=== PATIENT | female | born 1970 | race Caucasian/White ===

== ENCOUNTER 2016-11-23 08:58 | Emergency (ER) | payer SELFPAY ==
[2016-11-23] MEDS ORDERED: KETOROLAC TROMETHAMINE 0.45% 4 DROP/0.4 ML DROPERETTE OU ONE ×2 (10:38→12:08)
[2016-11-23 11:41] VITALS: BP 113/68
--- NOTE | 2016-11-23 11:49 | ER Document Report ---
ED ENT - General Chief Complaint: Eye Pain Stated Complaint: EYE PAIN Mode of Arrival: Ambulatory Information source: Patient Notes: 46-year-old female presents to the emergency department complaining of bilateral eye redness, drainage, irritation, and burning type pain over the last 3 days. Patient reports had conjunctivitis due to leaving her contact lens into long approximately 3 weeks ago which she started with left over eye drops. States symptoms had resolved however 3 days ago began developing them again. Denies fever, vision changes, eye pain, or injury. Reports has had cold and congestion over the last week and also 3 days ago began developing bilateral sinus pain with associated greenish and white discharge. Reports associated chills with unmeasured temperature at home. Denies nausea or vomiting, chest pain or shortness of breath, difficulty breathing or swallowing. States has appointment with her software quality specialist this week but cannot wait until then. TRAVEL OUTSIDE OF THE [place] IN LAST 30 DAYS: No - HPI Pain Level: 3 Context: Recent Illness Similar symptoms previously: Yes Recently seen / treated by doctor: No - Related Data Allergies/Adverse Reactions: lidocaine [Lidocaine] Allergy (Severe, Verified 11/23/16 09:08) airway swells promethazine [Promethazine] Allergy (Mild, Verified 11/23/16 09:08) RASH midazolam Adverse Reaction (Severe, Verified 11/23/16 09:08) loud and funny behavior topiramate [From Topamax] Adverse Reaction (Verified 11/23/16 09:08) hallucinate rose Allergy (Uncoded 11/23/16 09:08) Past Medical History - General Information source: Patient - Social History Smoking Status: Never Smoker Frequency of alcohol use: Occasional Drug Abuse: None Lives with: Family Family History: Reviewed & Not Pertinent - Past Medical History Cardiac Medical History: Denies: Hx Coronary Artery Disease, Hx Heart Attack, Hx Hypertension Pulmonary Medical History: Denies: Hx Asthma, Hx Bronchitis, Hx COPD, Hx Pneumonia, Hx Tuberculosis Neurological Medical History: Denies: Hx Cerebrovascular Accident, Hx Seizures Endocrine Medical History: Reports: 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 Denies: Hx Hysterectomy - Immunizations Immunizations up to date: Yes Hx Diphtheria, Pertussis, Tetanus Vaccination: Yes Hx Pneumococcal Vaccination: 05/22/13 Review of Systems - Review of Systems Constitutional: See HPI EENT: See HPI Cardiovascular: No symptoms reported Respiratory: No symptoms reported Gastrointestinal: No symptoms reported Genitourinary: No symptoms reported Female Genitourinary: No symptoms reported Musculoskeletal: No symptoms reported Skin: No symptoms reported Hematologic/Lymphatic: No symptoms reported Neurological/Psychological: No symptoms reported -: Yes All other systems reviewed and negative Physical Exam - Vital signs Vitals: Temp Pulse Resp BP Pulse Ox 97.9 F 66 16 110/71 98 11/23/16 09:05 11/23/16 09:05 11/23/16 09:05 11/23/16 09:05 11/23/16 09:05 Interpretation: Normal - General General appearance: Appears well, Alert In distress: None - HEENT Head: Normocephalic, Atraumatic Eyes: Normal Conjunctiva: Injected - Bilateral. No: Purulent discharge Cornea: Normal Extraocular movements intact: Yes Eyelashes: Normal Pupils: PERRL Corrective lenses worn: No Lids everted for exam: bilateral: Normal Anterior chamber: Normal Fundascopic: Normal Nerve palsy: No Visual sanders normal: Yes Ears: Normal External canal: Normal Tympanic membrane: Normal Sinus: Maxillary, Redness, Tenderness. No: Normal, Abnormal, Frontal, Mastoid, Swelling, Other Nasal: Normal Mouth/Lips: Normal Mucous membranes: Normal, Moist Pharynx: Normal. No: Blood in hypopharynx, Erythema, Exudate, Peritonsillar abscess, Post nasal drainage, Retropharyngeal abscess, Tonsillar hypertrophy, Uvular edema, Potential airway comprom., Other Neck: Normal. No: Anterior cervical chain, Posterior cervical chain, Lymphadenopathy, Meningismus, Subcutaneous emphysema - Respiratory Respiratory status: No respiratory distress Chest status: Nontender Breath sounds: Normal Chest palpation: Normal - Cardiovascular Rhythm: Regular Heart sounds: Normal auscultation Murmur: No Pulses: Normal: Radial Normal capillary refill: Yes - Abdominal Inspection: Normal Distension: No distension Bowel sounds: Normal Tenderness: Nontender Organomegaly: No organomegaly - Back Back: Normal, Nontender - Extremities General upper extremity: Normal inspection, Normal color, Normal ROM General lower extremity: Normal inspection, Normal color, Normal ROM, Normal weight bearing - Neurological Neuro grossly intact: Yes Cognition: Normal Orientation: AAOx4 Lauren Coma Scale Eye Opening: Spontaneous [place] Coma Scale Verbal: Oriented [place] Coma Scale Motor: Obeys Commands Lauren Coma Scale Total: 15 Speech: Normal Motor strength normal: LUE, RUE, LLE, RLE Sensory: Normal - Psychological Associated symptoms: Normal affect, Normal mood - Skin Skin Temperature: Warm Skin Moisture: Dry Skin Color: Normal Skin Turgor: Elastic Course - Re-evaluation Re-evalutation: 11/23/16 12:15 Patient hemodynamically stable, in no distress, afebrile. Patient reports symptoms significantly improved after ophthalmic ketorolac drops. No suggestion of emergent infectious, ophthalmic, inflammatory, or vascular etiology at this time. Patient appears stable for discharge and agrees with home care, follow-up with PCP and ophthalmology, and ED return precautions. - Vital Signs Vital signs: Temp Pulse Resp BP Pulse Ox 98.3 F 69 18 113/68 99 11/23/16 11:40 11/23/16 11:40 11/23/16 11:40 11/23/16 11:40 11/23/16 11:40 Discharge - Discharge Clinical Impression: Conjunctivitis Qualifiers: Conjunctivitis type: unspecified Laterality: bilateral Qualified Code(s): H10.9 - Unspecified conjunctivitis Sinusitis Qualifiers: Sinusitis location: maxillary Chronicity: acute Recurrence: non-recurrent Qualified Code(s): J01.00 - Acute maxillary sinusitis, unspecified Condition: Stable Disposition: HOME, SELF-CARE Instructions: Sinusitis ([facility]), Conjunctivitis ([facility]), Ketorolac Tromethamine Eye Drops ([facility]), Eyedrop Use ([facility]) Additional Instructions: -Apply 1 drop of the provided anti-inflammatory eyedrops (Ketorolac) to the affected eye every 6-8 hours if needed for eye discomfort. Home self care: -Rest, hydration (6-10 glasses/day) -Steamy shower -Apply warm facial packs -Nasal saline irrigation lavage -Sleep with head elevated -Avoid cigarette smoke -Use of humidifier/vaporizer -Balanced nutrition Follow-up with your primary care provider and software quality specialist tomorrow as discussed. Return to the Emergency Department for any worsening symptoms or concerns. Prescriptions: Amox Tr/Potassium Clavulanate [Augmentin 875-125 Tablet] 1 tab PO BID 7 Days Besifloxacin HCl [Besivance 0.6% Oph Susp 5 ml] 1 drop OP TID #1 bottle Forms: Return to Work Referrals: HEATH STARK MD [Primary Care Provider] - Follow up tomorrow SHEKHAR WILLOUGHBY, OD [NO LOCAL MD] - Follow up tomorrow
== END 2016-11-23 12:36 | disposition home or self-care (01) ==
LOC: ER 08:58
DX: H10.9 Unspecified conjunctivitis (principal); J01.00 Acute maxillary sinusitis, unspecified; H57.10 Ocular pain, unspecified eye
CPT/HCPCS: 99283

== ENCOUNTER → 2016-12-15 | Outpatient (CLI) | payer SELFPAY ==
[2016-12-15 15:52] LABS: ABSOLUTE BASOPHILS # (AUTO) 0.1 10^3/uL (0.0-0.2); ABSOLUTE EOSINOPHILS # (AUTO) 0.4 10^3/uL (0.0-0.6); ABSOLUTE LYMPHOCYTES (AUTO) 2.5 10^3/uL (0.5-4.7); ABSOLUTE MONOCYTES (AUTO) 0.6 10^3/uL (0.1-1.4); ABSOLUTE NEUT (AUTO) 5.8 10^3/uL (1.7-8.2); BASOPHILS % (AUTO) 1.1 % (0-2); EOSINOPHILS % (AUTO) 3.9 % (0-6); HEMATOCRIT 40.8 % (36.0-47.0); HEMOGLOBIN 13.2 g/dL (12.0-15.5); HGB HCT DIFFERENCE -1.2; LYMPHOCYTES % (AUTO) 26.9 % (13-45); MEAN CORPUSCULAR HEMOGLOBIN 30.3 pg (27.0-33.4); MEAN CORPUSCULAR HGB CONC 32.5 g/dL (32.0-36.0); MEAN CORPUSCULAR VOLUME 94 fl (80-97); MONOCYTES % (AUTO) 6.4 % (3-13); RED BLOOD COUNT 4.36 10^6/uL (3.72-5.28); RED CELL DISTRIBUTION WIDTH 12.8 % (11.5-14.0); SEGMENTED NEUTROPHILS % (AUTO) 61.7 % (42-78); WHITE BLOOD COUNT 9.5 10^3/uL (4.0-10.5)
[2016-12-15 16:21] LABS: ALANINE AMINOTRANSFERASE 32 U/L (9-52); ALBUMIN 3.8 g/dL (3.5-5.0); ALKALINE PHOSPHATASE 114 U/L (38-126); ANION GAP 11 (5-19); ASPARTATE AMINO TRANSFERASE 20 U/L (14-36); BILIRUBIN,TOTAL 0.4 mg/dL (0.2-1.3); BLOOD UREA NITROGEN 15 mg/dL (7-20); CALCIUM 9.4 mg/dL (8.4-10.2); CARBON DIOXIDE 27 mmol/L (22-30); CHLORIDE 104 mmol/L (98-107); CREATININE RESULT 0.67 mg/dL (0.52-1.25); GLUCOSE 221 mg/dL (75-110); POTASSIUM 4.4 mmol/L (3.6-5.0); SODIUM 141.8 mmol/L (137-145); TOTAL PROTEIN 6.6 g/dL (6.3-8.2)
== END ==
LOC: OD 14:33
PROVIDERS: ATTEND Family Medicine
DX: D50.9 Iron deficiency anemia, unspecified (principal); E46 Unspecified protein-calorie malnutrition; E11.9 Type 2 diabetes mellitus without complications
CPT/HCPCS: 36415; 80053; 83036; 85025

== ENCOUNTER → 2017-01-19 | Outpatient (CLI) | payer OTHER | LOC: WI 07:14 | DX: Z12.31 Encounter for screening mammogram for malignant neoplasm of breast (principal) | CPT/HCPCS: 77067; G0202 ==

== ENCOUNTER → 2017-02-18 | Outpatient (CLI) | payer SELFPAY ==
[2017-02-18 18:03] LABS: ABSOLUTE BASOPHILS # (AUTO) 0.1 10^3/uL (0.0-0.2); ABSOLUTE EOSINOPHILS # (AUTO) 0.3 10^3/uL (0.0-0.6); ABSOLUTE LYMPHOCYTES (AUTO) 3.6 10^3/uL (0.5-4.7); ABSOLUTE MONOCYTES (AUTO) 0.8 10^3/uL (0.1-1.4); BASOPHILS % (AUTO) 0.7 % (0-2); EOSINOPHILS % (AUTO) 1.9 % (0-6); HEMATOCRIT 43.3 % (36.0-47.0); HEMOGLOBIN 14.6 g/dL (12.0-15.5); HGB HCT DIFFERENCE 0.5; LYMPHOCYTES % (AUTO) 26.3 % (13-45); MEAN CORPUSCULAR HEMOGLOBIN 30.9 pg (27.0-33.4); MEAN CORPUSCULAR HGB CONC 33.6 g/dL (32.0-36.0); MEAN CORPUSCULAR VOLUME 92 fl (80-97); MONOCYTES % (AUTO) 5.7 % (3-13); RED BLOOD COUNT 4.72 10^6/uL (3.72-5.28); RED CELL DISTRIBUTION WIDTH 13.2 % (11.5-14.0); SEGMENTED NEUTROPHILS % (AUTO) 65.4 % (42-78); WHITE BLOOD COUNT 13.8 10^3/uL (4.0-10.5)
[2017-02-18 18:31] LABS: ANION GAP 12 (5-19); BLOOD UREA NITROGEN 13 mg/dL (7-20); CALCIUM 9.9 mg/dL (8.4-10.2); CARBON DIOXIDE 27 mmol/L (22-30); CHLORIDE 103 mmol/L (98-107); CREATININE RESULT 0.52 mg/dL (0.52-1.25); GLUCOSE 138 mg/dL (75-110); POTASSIUM 4.3 mmol/L (3.6-5.0); SODIUM 141.7 mmol/L (137-145)
== END ==
LOC: OD 12:42
PROVIDERS: ATTEND Family Medicine
DX: D50.9 Iron deficiency anemia, unspecified (principal); E11.9 Type 2 diabetes mellitus without complications
CPT/HCPCS: 36415; 80048; 82728; 83036; 85025

== ENCOUNTER → 2017-03-01 | Outpatient (CLI) | payer SELFPAY ==
[2017-03-01 12:39] LABS: ABSOLUTE BASOPHILS # (AUTO) 0.1 10^3/uL (0.0-0.2); ABSOLUTE EOSINOPHILS # (AUTO) 0.1 10^3/uL (0.0-0.6); ABSOLUTE MONOCYTES (AUTO) 0.6 10^3/uL (0.1-1.4); ABSOLUTE NEUT (AUTO) 6.5 10^3/uL (1.7-8.2); BASOPHILS % (AUTO) 0.9 % (0-2); EOSINOPHILS % (AUTO) 1.2 % (0-6); HEMATOCRIT 41.3 % (36.0-47.0); HGB HCT DIFFERENCE 0.7; LYMPHOCYTES % (AUTO) 29.1 % (13-45); MEAN CORPUSCULAR HEMOGLOBIN 31.1 pg (27.0-33.4); MEAN CORPUSCULAR HGB CONC 33.9 g/dL (32.0-36.0); MEAN CORPUSCULAR VOLUME 92 fl (80-97); MONOCYTES % (AUTO) 6.1 % (3-13); RED CELL DISTRIBUTION WIDTH 12.7 % (11.5-14.0); SEGMENTED NEUTROPHILS % (AUTO) 62.7 % (42-78); WHITE BLOOD COUNT 10.3 10^3/uL (4.0-10.5)
[2017-03-01 12:56] LABS: ALANINE AMINOTRANSFERASE 38 U/L (9-52); ALBUMIN 4.2 g/dL (3.5-5.0); ALKALINE PHOSPHATASE 146 U/L (38-126); ASPARTATE AMINO TRANSFERASE 19 U/L (14-36); BILIRUBIN,DIRECT 0.1 mg/dL (0.0-0.4); BILIRUBIN,TOTAL 0.3 mg/dL (0.2-1.3); LIPASE 32.1 U/L (23-300); TOTAL PROTEIN 6.7 g/dL (6.3-8.2)
== END ==
LOC: OD 11:33
PROVIDERS: ATTEND Family Medicine
DX: R10.10 Upper abdominal pain, unspecified (principal)
CPT/HCPCS: 36415; 74177; 80076; 83690; 85025

== ENCOUNTER 2017-06-07 18:02 | Emergency (ER) | payer SELFPAY ==
[2017-06-07 18:12] VITALS: BP 138/94
--- NOTE | 2017-06-07 19:31 | ER Document Report ---
HPI - HPI Onset: This morning - cut her finger on a leather softener knife, tetanus UTD. she closed it with super glue but says its still bleeding Pain Level: 1 - REPRODUCTIVE Reproductive: DENIES: : - DERM Skin Color: Normal Past Medical History - Social History Smoking Status: Unknown if Ever Smoked Family History: Reviewed & Not Pertinent Patient has suicidal ideation: No Patient has homicidal ideation: No - Past Medical History Cardiac Medical History: Denies: Hx Coronary Artery Disease, Hx Heart Attack, Hx Hypertension Pulmonary Medical History: Denies: Hx Asthma, Hx Bronchitis, Hx COPD, Hx Pneumonia, Hx Tuberculosis Neurological Medical History: Denies: Hx Cerebrovascular Accident, Hx Seizures Endocrine Medical History: Reports: 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 Denies: Hx Hysterectomy - Immunizations Immunizations up to date: Yes Hx Diphtheria, Pertussis, Tetanus Vaccination: Yes Hx Pneumococcal Vaccination: 05/22/13 Vertical Provider Document - INFECTION CONTROL TRAVEL OUTSIDE OF THE [place] IN LAST 30 DAYS: No - RESPIRATORY O2 Sat by Pulse Oximetry: 97 - CARDIOVASCULAR Pulses: Normal: Radial - cap refill < 2 seconds - MUSCULOSKELETAL/EXTREMETIES Musculoskeletal/Extremeties: MAEW, FROM, Non-Tender, No Edema. negative: Eccymosis - NEURO Level of Consciousness: Awake, Alert, Appropriate Motor/Sensory: No Motor Deficit, No Sensory Deficit - DERM Integumentary: Warm, Dry, No Rash, Laceration - 1 cm lac on the right hand along the flexor surface of the right index distal PIP joint. no bleeding, wound approximated with glue. Course - Re-evaluation Re-evalutation: 06/07/17 21:08 Patient is a 47-year-old female who is hemodynamic stable, no distress afebrile. Presentation with a laceration that is closed. No evidence of bleeding. Digit is neurovascularly intact with full range of motion no concern for tendon injury. Patient tetanus is up-to-date. Patient will be placed on prophylactic antibiotics. Patient given strict return precautions. Patient is agreeable with plan. - Vital Signs Vital signs: Temp Pulse Resp BP Pulse Ox 98.2 F 84 18 138/94 H 97 07/17/17 18:10 06/07/17 18:10 06/07/17 18:10 06/07/17 18:10 06/07/17 18:10 Discharge - Discharge Clinical Impression: Laceration Condition: Good Disposition: HOME, SELF-CARE Instructions: Laceration Care ([facility]), Prophylactic Antibiotic ([facility]), Soap Cleansing ([facility]) Additional Instructions: If bleeding returns, apply firm pressure for 20 minutes. If bleeding continues, repeat for 2-3 more cycles Prescriptions: Cephalexin Monohydrate [Keflex 500 mg Capsule] 500 mg PO QID #20 capsule Referrals: HEATH STARK MD [Primary Care Provider] - Follow up as needed
== END 2017-06-07 20:08 | disposition home or self-care (01) ==
LOC: ER 18:02
DX: S61.210A Laceration without foreign body of right index finger without damage to nail, initial encounter (principal); W26.0XXA Contact with knife, initial encounter; Z90.49 Acquired absence of other specified parts of digestive tract; Z98.84 Bariatric surgery status
CPT/HCPCS: 99282

== ENCOUNTER → 2017-08-05 | Outpatient (CLI) | payer SELFPAY ==
[2017-08-05 11:25] LABS: ABSOLUTE BASOPHILS # (AUTO) 0.1 10^3/uL (0.0-0.2); ABSOLUTE EOSINOPHILS # (AUTO) 0.2 10^3/uL (0.0-0.6); ABSOLUTE LYMPHOCYTES (AUTO) 3.2 10^3/uL (0.5-4.7); ABSOLUTE MONOCYTES (AUTO) 0.8 10^3/uL (0.1-1.4); ABSOLUTE NEUT (AUTO) 7.5 10^3/uL (1.7-8.2); BASOPHILS % (AUTO) 0.6 % (0-2); EOSINOPHILS % (AUTO) 1.7 % (0-6); HEMATOCRIT 43.4 % (36.0-47.0); HEMOGLOBIN 14.9 g/dL (12.0-15.5); HGB HCT DIFFERENCE 1.3; LYMPHOCYTES % (AUTO) 27.1 % (13-45); MEAN CORPUSCULAR HEMOGLOBIN 31.4 pg (27.0-33.4); MEAN CORPUSCULAR HGB CONC 34.4 g/dL (32.0-36.0); MEAN CORPUSCULAR VOLUME 91 fl (80-97); MONOCYTES % (AUTO) 6.8 % (3-13); RED BLOOD COUNT 4.76 10^6/uL (3.72-5.28); RED CELL DISTRIBUTION WIDTH 12.9 % (11.5-14.0); SEGMENTED NEUTROPHILS % (AUTO) 63.8 % (42-78); WHITE BLOOD COUNT 11.7 10^3/uL (4.0-10.5)
[2017-08-05 12:19] LABS: ANION GAP 10 (5-19); BLOOD UREA NITROGEN 8 mg/dL (7-20); CALCIUM 9.6 mg/dL (8.4-10.2); CARBON DIOXIDE 31 mmol/L (22-30); CHLORIDE 98 mmol/L (98-107); CREATININE RESULT 0.53 mg/dL (0.52-1.25); GLUCOSE 165 mg/dL (75-110); POTASSIUM 4.2 mmol/L (3.6-5.0); SODIUM 138.7 mmol/L (137-145)
== END ==
LOC: OD 10:30
PROVIDERS: ATTEND Family Medicine
DX: D50.9 Iron deficiency anemia, unspecified (principal); E11.9 Type 2 diabetes mellitus without complications
CPT/HCPCS: 36415; 80048; 82728; 83036; 83540; 83550; 85025

== ENCOUNTER → 2018-01-25 | Outpatient (CLI) | payer SELFPAY ==
[2018-01-25 09:54] LABS: ABSOLUTE BASOPHILS # (AUTO) 0.1 10^3/uL (0.0-0.2); ABSOLUTE EOSINOPHILS # (AUTO) 0.2 10^3/uL (0.0-0.6); ABSOLUTE LYMPHOCYTES (AUTO) 1.9 10^3/uL (0.5-4.7); ABSOLUTE MONOCYTES (AUTO) 1.1 10^3/uL (0.1-1.4); ABSOLUTE NEUT (AUTO) 11.1 10^3/uL (1.7-8.2); BASOPHILS % (AUTO) 0.5 % (0-2); EOSINOPHILS % (AUTO) 1.1 % (0-6); HEMATOCRIT 44.7 % (36.0-47.0); HEMOGLOBIN 14.9 g/dL (12.0-15.5); LYMPHOCYTES % (AUTO) 13.5 % (13-45); MEAN CORPUSCULAR HEMOGLOBIN 29.6 pg (27.0-33.4); MEAN CORPUSCULAR HGB CONC 33.4 g/dL (32.0-36.0); MEAN CORPUSCULAR VOLUME 89 fl (80-97); MONOCYTES % (AUTO) 7.7 % (3-13); PLATELET COUNT 333 10^3/uL (150-450); RED BLOOD COUNT 5.04 10^6/uL (3.72-5.28); RED CELL DISTRIBUTION WIDTH 12.9 % (11.5-14.0); SEGMENTED NEUTROPHILS % (AUTO) 77.2 % (42-78); TOTAL CELLS COUNTED % (AUTO) 100 %; WHITE BLOOD COUNT 14.3 10^3/uL (4.0-10.5)
[2018-01-25 10:20] LABS: ALANINE AMINOTRANSFERASE 26 U/L (9-52); ALBUMIN 4.6 g/dL (3.5-5.0); ALKALINE PHOSPHATASE 119 U/L (38-126); ANION GAP 12 (5-19); ASPARTATE AMINO TRANSFERASE 18 U/L (14-36); BILIRUBIN,DIRECT 0.2 mg/dL (0.0-0.4); BILIRUBIN,TOTAL 0.8 mg/dL (0.2-1.3); BLOOD UREA NITROGEN 18 mg/dL (7-20); CALCIUM 10.1 mg/dL (8.4-10.2); CARBON DIOXIDE 29 mmol/L (22-30); CHLORIDE 98 mmol/L (98-107); CHOLESTEROL 202.55 mg/dL (0-200); GLUCOSE 199 mg/dL (75-110); IRON(TIBC) 66.9 ug/dL (37-170); POTASSIUM 4.6 mmol/L (3.6-5.0); SODIUM 138.7 mmol/L (137-145); TOTAL PROTEIN 7.3 g/dL (6.3-8.2); TRIGLYCERIDES 115 mg/dL (<150)
[2018-01-25 10:31] LABS: DIRECT LDL 149 mg/dL (<100)
[2018-01-26 10:38] LABS: MICROALBUMIN URINE 42.7 ug/mL (Not Estab.)
[2018-01-28 10:38] LABS: OXYCODONE (GC/MS) URINE 11900 ng/mL (Cutoff=200); OXYCODONE URINE Positive (.); OXYMORPHONE URINE Positive (.)
[2018-01-28 14:02] LABS: OXYCODONE/OXYMORPHONE UR See Final Results ng/mL (Cutoff=200); OXYCODONE/OXYMORPHONE URINE Positive (Cutoff=200); OXYMORPHONE (GC/MS) URINE >15000 ng/mL (Cutoff=200)
== END ==
LOC: OD 08:42
PROVIDERS: ATTEND Family Medicine
DX: E11.9 Type 2 diabetes mellitus without complications (principal); D50.9 Iron deficiency anemia, unspecified; Z79.891 Long term (current) use of opiate analgesic; Z79.899 Other long term (current) drug therapy; Z98.83 Filtering (vitreous) bleb after glaucoma surgery status
CPT/HCPCS: 82043; 82570; 36415; 82306; 82607; 83540; 83550; 85025; 80053; 83036; 80061; G0480 ×2; 80307

== ENCOUNTER → 2018-08-01 | Outpatient (CLI) | payer SELFPAY ==
--- NOTE | 2018-08-01 09:51 | RADIOLOGY REPORT (SQ) ---
EXAM DESCRIPTION: MRI ABDOMEN WITHOUT COMPLETED DATE/TIME: 08/01/2018 8:09 am REASON FOR STUDY: *MRCP* OTHER PANCREATITIS (K86.1) K86.1 OTHER CHRONIC PANCREATITIS COMPARISON: None. TECHNIQUE: Noncontrast MRCP. Source and MIP images reviewed. LIMITATIONS: None. FINDINGS: GALLBLADDER: Surgically absent. INTRAHEPATIC DUCTS: Nondilated. EXTRAHEPATIC DUCTS: Common duct is normal caliber. No dilatation of the pancreatic duct. No ductal filling defects noted. PANCREAS: Generally homogeneous, no gross mass or significant signal alteration. No surrounding infl ammatory changes or fluid. Pancreatic duct is normal. LIVER, SPLEEN, KIDNEYS, ADRENALS: No significant abnormality. VESSELS: No evidence of aneurysm. Grossly appropriate flow voids in the major vascular structures. LUNG BASES: Grossly clear. OTHER: No other significant finding. IMPRESSION: NORMAL HEPATOBILIARY SYSTEM. NO STONES OR COMMON DUCT ABNORMALITIES. TECHNICAL DOCUMENTATION: JOB ID: [id number] [employer]- All Rights Reserved Reading location - IP/workstation name: [email or web address]
== END ==
LOC: RAD 06:46
PROVIDERS: ATTEND Family Medicine
DX: K86.1 Other chronic pancreatitis (principal)
CPT/HCPCS: 74181

== ENCOUNTER → 2018-10-03 | Outpatient (CLI) | payer MEDICARE ==
[2018-10-03 11:07] LABS: ABSOLUTE BASOPHILS # (AUTO) 0.1 10^3/uL (0.0-0.2); ABSOLUTE EOSINOPHILS # (AUTO) 0.3 10^3/uL (0.0-0.6); ABSOLUTE LYMPHOCYTES (AUTO) 3.3 10^3/uL (0.5-4.7); ABSOLUTE MONOCYTES (AUTO) 0.7 10^3/uL (0.1-1.4); ABSOLUTE NEUT (AUTO) 5.4 10^3/uL (1.7-8.2); BASOPHILS % (AUTO) 1.1 % (0-2); EOSINOPHILS % (AUTO) 2.7 % (0-6); HEMATOCRIT 46.6 % (36.0-47.0); HEMOGLOBIN 15.6 g/dL (12.0-15.5); LYMPHOCYTES % (AUTO) 33.4 % (13-45); MEAN CORPUSCULAR HGB CONC 33.5 g/dL (32.0-36.0); MEAN CORPUSCULAR VOLUME 90 fl (80-97); MONOCYTES % (AUTO) 7.5 % (3-13); PLATELET COUNT 314 10^3/uL (150-450); RED CELL DISTRIBUTION WIDTH 13.9 % (11.5-14.0); SEGMENTED NEUTROPHILS % (AUTO) 55.3 % (42-78); TOTAL CELLS COUNTED % (AUTO) 100 %; WHITE BLOOD COUNT 9.8 10^3/uL (4.0-10.5)
[2018-10-03 11:26] LABS: ALANINE AMINOTRANSFERASE 27 U/L (9-52); ALBUMIN 4.6 g/dL (3.5-5.0); ALKALINE PHOSPHATASE 96 U/L (38-126); ANION GAP 14 (5-19); ASPARTATE AMINO TRANSFERASE 26 U/L (14-36); BILIRUBIN,DIRECT 0.4 mg/dL (0.0-0.4); BILIRUBIN,TOTAL 0.7 mg/dL (0.2-1.3); BLOOD UREA NITROGEN 12 mg/dL (7-20); CALCIUM 9.8 mg/dL (8.4-10.2); CARBON DIOXIDE 27 mmol/L (22-30); CHLORIDE 102 mmol/L (98-107); CHOLESTEROL 221.34 mg/dL (0-200); GLUCOSE 137 mg/dL (75-110); IRON(TIBC) 110.3 ug/dL (37-170); SODIUM 142.5 mmol/L (137-145); TOTAL PROTEIN 7.9 g/dL (6.3-8.2); TRIGLYCERIDES 99 mg/dL (<150)
[2018-10-03 11:37] LABS: DIRECT LDL 176 mg/dL (<100)
[2018-10-03 12:04] LABS: POTASSIUM 4.6 mmol/L (3.6-5.0)
[2018-10-04 15:37] LABS: CREATININE URINE 144.7 mg/dL (Not Estab.); MICROALBUMIN URINE 10.5 ug/mL (Not Estab.)
== END ==
LOC: OD 09:29
PROVIDERS: ATTEND Family Medicine
DX: E11.9 Type 2 diabetes mellitus without complications (principal); K27.4 Chronic or unspecified peptic ulcer, site unspecified, with hemorrhage; D50.9 Iron deficiency anemia, unspecified
CPT/HCPCS: 36415; 80053; 80061; 82043; 82570; 83036; 83540; 83550; 85025

== ENCOUNTER → 2018-10-27 | Outpatient (CLI) | payer MEDICARE ==
--- NOTE | 2018-10-27 10:04 | RADIOLOGY REPORT (SQ) ---
EXAM DESCRIPTION: MRI ABDOMEN WITHOUT COMPLETED DATE/TIME: 10/27/2018 9:30 am REASON FOR STUDY: MRCP OTHER CHRONIC PANCREATITIS (K86.1) K86.1 OTHER CHRONIC PANCREATITIS COMPARISON: 08/01/2018 TECHNIQUE: Noncontrast MRCP. Source and MIP images reviewed. LIMITATIONS: None. FINDINGS: GALLBLADDER: Surgically absent. INTRAHEPATIC DUCTS: Nondilated. EXTRAHEPATIC DUCTS: Common duct is normal caliber. No dilatation of the pancreatic duct. No ductal filling defects noted. PANCREAS: Generally homogeneous, no gross mass or significant signal alteration. No surrounding infl ammatory changes or fluid. Pancreatic duct is normal. LIVER, SPLEEN, KIDNEYS, ADRENALS: No significant abnormality. VESSELS: No evidence of aneurysm. Grossly appropriate flow voids in the major vascular structures. LUNG BASES: Grossly clear. OTHER: No other significant finding. IMPRESSION: NORMAL HEPATOBILIARY SYSTEM. NO STONES OR COMMON DUCT ABNORMALITIES. TECHNICAL DOCUMENTATION: JOB ID: [id number] [employer]- All Rights Reserved Reading location - IP/workstation name: [email or web address]
== END ==
LOC: RAD 07:58
PROVIDERS: ATTEND Family Medicine
DX: K86.1 Other chronic pancreatitis (principal)
CPT/HCPCS: 74181

== ENCOUNTER → 2018-12-21 | Outpatient (CLI) | payer MEDICARE ==
[2018-12-21 16:28] LABS: ABSOLUTE BASOPHILS # (AUTO) 0.1 10^3/uL (0.0-0.2); ABSOLUTE EOSINOPHILS # (AUTO) 0.2 10^3/uL (0.0-0.6); ABSOLUTE LYMPHOCYTES (AUTO) 2.8 10^3/uL (0.5-4.7); ABSOLUTE MONOCYTES (AUTO) 0.4 10^3/uL (0.1-1.4); ABSOLUTE NEUT (AUTO) 4.3 10^3/uL (1.7-8.2); EOSINOPHILS % (AUTO) 3.1 % (0-6); HEMATOCRIT 39.6 % (36.0-47.0); HEMOGLOBIN 13.6 g/dL (12.0-15.5); LYMPHOCYTES % (AUTO) 35.9 % (13-45); MEAN CORPUSCULAR HEMOGLOBIN 30.9 pg (27.0-33.4); MEAN CORPUSCULAR HGB CONC 34.4 g/dL (32.0-36.0); MEAN CORPUSCULAR VOLUME 90 fl (80-97); MONOCYTES % (AUTO) 5.1 % (3-13); PLATELET COUNT 270 10^3/uL (150-450); RED BLOOD COUNT 4.41 10^6/uL (3.72-5.28); SEGMENTED NEUTROPHILS % (AUTO) 54.9 % (42-78); TOTAL CELLS COUNTED % (AUTO) 100 %; WHITE BLOOD COUNT 7.9 10^3/uL (4.0-10.5)
[2018-12-21 16:51] LABS: ALANINE AMINOTRANSFERASE 31 U/L (9-52); ALBUMIN 4.2 g/dL (3.5-5.0); ALKALINE PHOSPHATASE 71 U/L (38-126); ANION GAP 9 (5-19); ASPARTATE AMINO TRANSFERASE 25 U/L (14-36); BILIRUBIN,DIRECT 0.3 mg/dL (0.0-0.4); BILIRUBIN,TOTAL 0.3 mg/dL (0.2-1.3); BLOOD UREA NITROGEN 18 mg/dL (7-20); CALCIUM 9.2 mg/dL (8.4-10.2); CARBON DIOXIDE 27 mmol/L (22-30); CHLORIDE 103 mmol/L (98-107); GLUCOSE 198 mg/dL (75-110); LIPASE 49.3 U/L (23-300); POTASSIUM 4.5 mmol/L (3.6-5.0); SODIUM 139.4 mmol/L (137-145); TOTAL PROTEIN 6.7 g/dL (6.3-8.2)
[2018-12-21 16:55] LABS: AMYLASE < 30 U/L (30-110)
== END ==
LOC: OD 15:00
PROVIDERS: ATTEND Family Medicine
DX: R10.10 Upper abdominal pain, unspecified (principal); G89.4 Chronic pain syndrome
CPT/HCPCS: 36415; 82150; 83690; 85025; 80053; G0480 ×2; 80365

== ENCOUNTER 2019-05-23 06:58 | Day surgery (SDC) | payer MEDICARE ==
[2019-05-23] MEDS ORDERED: DIPHENHYDRAMINE HCL 50 MG/ML VIAL ONE (07:13)
[2019-05-23] MEDS ORDERED: ONDANSETRON HCL INJ/PF 4 MG/2 ML SDV ONE (07:13)
[2019-05-23] MEDS ORDERED: EPINEPHRINE INJ 1 MG/10 ML DISP.SYRIN ONE (07:14)
[2019-05-23] MEDS ORDERED: GLUCAGON,HUMAN RECOMB 1 MG INJ ONE (07:14)
[2019-05-23] MEDS ORDERED: FLUMAZENIL INJ 0.5 MG/5 ML VIAL ONE (07:14)
[2019-05-23] MEDS ORDERED: NALOXONE HCL INJ/PF 0.4 MG/1 ML SDV ONE (07:14)
[2019-05-23] MEDS: MIDAZOLAM 2 MG/2 ML INJ ONE ×5 (07:50→08:13)
[2019-05-23] MEDS: FENTANYL CITRATE INJ/PF 100 MCG/2 ML AMPUL ONE ×6 (07:53→08:15)
--- NOTE | 2019-05-23 08:51 | Operative Report ---
Nonrecallable Operative Report DATE OF SURGERY: 05/23/19 PREOPERATIVE DIAGNOSIS: abdominal pain, s/p gastric bypass POSTOPERATIVE DIAGNOSIS: abdominal pain, s/p gastric bypass OPERATION: esophagogastroduodenoscopy SURGEON: ZACHARIAH ABARCA ANESTHESIA: Moderate Sedation TISSUE REMOVED OR ALTERED: gastric bx for h-pylori COMPLICATIONS: none ESTIMATED BLOOD LOSS: 0 INTRAOPERATIVE FINDINGS: see dictation PROCEDURE: see dictation
--- NOTE | 2019-05-23 08:52 | Discharge Summary ---
Discharge Summary (SDC) - Discharge Final Diagnosis: abdominal pain Date of Surgery: 05/23/19 Discharge Date: 05/23/19 Condition: Good Referrals: HEATH STARK MD [Primary Care Provider] - Discharge Diet: As Tolerated Discharge Activity: Activity As Tolerated Report the Following to Your Physician Immediately: Shortness of Breath, Nausea, Vomiting - needs a post op appoint with me in 7-10 days
[2019-05-23] MEDS ORDERED: MIDAZOLAM 2 MG/2 ML INJ ONE (08:56)
[2019-05-23] MEDS ORDERED: FENTANYL CITRATE INJ/PF 100 MCG/2 ML AMPUL ONE (08:56)
--- NOTE | 2019-05-23 09:50 | OPERATIVE REPORT E ---
Operative Report NAME: ABEL ALEXANDER : 1970 AGE: 49Y DATE OF SURGERY: 05/23/2019 ROOM: PREOPERATIVE DIAGNOSIS: ABDOMINAL PAIN STATUS POST GASTRIC BYPASS WITH MULTIPLE REVISIONS. POSTOPERATIVE DIAGNOSIS: ABDOMINAL PAIN STATUS POST GASTRIC BYPASS WITH MULTIPLE REVISIONS. OPERATION: Esophagogastroduodenoscopy. SURGEON: ZACHARIAH ABARCA M.D. INDICATIONS FOR OPERATION: This is a 49-year-old female who previously underwent a Thiago-en-Y gastric bypass a number of years ago. Subsequent to that, had a significant weight loss but also had issues with chronic abdominal pain and multiple previous ulcers at her anastomosis. Eventually that led to 1 revision and then a revision to return her to normal anatomy. Subsequent to that she has had chronic upper abdominal pain and epigastric pain that radiates to her back. She has been treated with oral narcotics for a prolonged period of time and multiple attempts at other modes of treatment including pain management to the point now she is on a chronic narcotic patch with continued epigastric pain. She has undergone previous CT scans and MRI scans which do not show evidence of chronic pancreatitis or other abnormal anatomy that can elucidate her abdominal pain. She is therefore now undergoing an upper endoscopy to see if we can identify a cause of her epigastric abdominal pain. PROCEDURE: The patient was brought to the endoscopy suite, awake, alert, and in stable condition. Placed on the endoscopy table, given IV sedation. After an appropriate timeout was obtained and site verification, she was placed in left lateral decubitus position, the Olympus gastroscope was used. It was easily passed into the posterior pharynx and down her esophagus. As we reached her GE junction we noted the normal anatomy with a moderate sized hiatal hernia. The scope was then further advanced into the proximal stomach. I noted a staple line with a few exposed alisia that appeared to be from the previous stapled anastomosis that re-anastomosed her gastric pouch to her gastric remnant. I entered her gastric remnant which also appeared to be somewhat erythematous. There was a large amount of bile that was noted in her fundus as well as in the antrum and some mild gastritis. This was biopsied and sent for H. pylori. We then identified her pylorus which was somewhat at a right angle but we were able to intubate the pylorus and identify the duodenum which appeared to be normal. As we withdrew the scope the duodenal bulb was examined and that was normal. Again, the pylorus was seen at a right angle. As we slowly withdrew the scope I retroflexed it and noted the moderate sized hiatal hernia and the previous stapled anastomosis which had some erythema around the staple line. Again, that was biopsied. We withdrew the scope without incident. IMPRESSION: Status post gastrogastrostomy for a return to normal anatomy after gastric bypass, some mild gastritis possibly secondary to bile gastritis, exposed alisia, moderate hiatal hernia. PLAN: The patient will be discharged after awaking from her sedation and undergo an upper GI for further elucidation of anatomy. DICTATING PHYSICIAN: ZACHARIAH ABARCA M.D. [id number] [facility]#: [id number] ID: [id number] JOB#: [id number] ACCT: [id number] cc:ZACHARIAH ABARCA M.D. >
[2019-05-23 11:38] VITALS: BP 89/41
== END 2019-05-23 09:55 | disposition home or self-care (01) ==
LOC: END 06:58
PROVIDERS: ATTEND Surgery
DX: K29.50 Unspecified chronic gastritis without bleeding (principal); Z98.84 Bariatric surgery status; E11.40 Type 2 diabetes mellitus with diabetic neuropathy, unspecified; D64.9 Anemia, unspecified; Z79.4 Long term (current) use of insulin; Z79.899 Other long term (current) drug therapy; G25.81 Restless legs syndrome; F32.9 Major depressive disorder, single episode, unspecified; F41.1 Generalized anxiety disorder; K86.1 Other chronic pancreatitis; Z87.11 Personal history of peptic ulcer disease
CPT/HCPCS: 43239; 82962; 88342 ×2; 88305 ×2; J2250; J3010; J0171; J1200; J1610; J2310; J2405; J3490

== ENCOUNTER → 2019-08-25 | Outpatient (CLI) | payer MEDICARE ==
[2019-08-25 11:22] LABS: ABSOLUTE BASOPHILS # (AUTO) 0.1 10^3/uL (0.0-0.2); ABSOLUTE EOSINOPHILS # (AUTO) 0.2 10^3/uL (0.0-0.6); ABSOLUTE LYMPHOCYTES (AUTO) 2.9 10^3/uL (0.5-4.7); ABSOLUTE MONOCYTES (AUTO) 0.8 10^3/uL (0.1-1.4); ABSOLUTE NEUT (AUTO) 6.9 10^3/uL (1.7-8.2); BASOPHILS % (AUTO) 0.6 % (0-2); EOSINOPHILS % (AUTO) 2.3 % (0-6); HEMOGLOBIN 15.5 g/dL (12.0-15.5); LYMPHOCYTES % (AUTO) 26.9 % (13-45); MEAN CORPUSCULAR HEMOGLOBIN 31.2 pg (27.0-33.4); MEAN CORPUSCULAR HGB CONC 34.4 g/dL (32.0-36.0); MEAN CORPUSCULAR VOLUME 91 fl (80-97); MONOCYTES % (AUTO) 7.3 % (3-13); PLATELET COUNT 268 10^3/uL (150-450); RED BLOOD COUNT 4.96 10^6/uL (3.72-5.28); RED CELL DISTRIBUTION WIDTH 13.7 % (11.5-14.0); SEGMENTED NEUTROPHILS % (AUTO) 62.9 % (42-78); TOTAL CELLS COUNTED % (AUTO) 100 %
[2019-08-25 11:30] LABS: ALBUMIN 4.6 g/dL (3.5-5.0); ALKALINE PHOSPHATASE 81 U/L (38-126); ANION GAP 9 (5-19); ASPARTATE AMINO TRANSFERASE 25 U/L (14-36); BILIRUBIN,DIRECT 0.2 mg/dL (0.0-0.4); BILIRUBIN,TOTAL 0.8 mg/dL (0.2-1.3); BLOOD UREA NITROGEN 19 mg/dL (7-20); CALCIUM 9.4 mg/dL (8.4-10.2); CARBON DIOXIDE 27 mmol/L (22-30); CHLORIDE 101 mmol/L (98-107); GLUCOSE 180 mg/dL (75-110); IRON(TIBC) 141.1 ug/dL (37-170); POTASSIUM 4.3 mmol/L (3.6-5.0); TOTAL PROTEIN 7.9 g/dL (6.3-8.2); TRIGLYCERIDES 122 mg/dL (<150)
[2019-08-25 11:41] LABS: DIRECT LDL 191 mg/dL (<100)
== END ==
LOC: OD 09:17
PROVIDERS: ATTEND Family Medicine
DX: E11.9 Type 2 diabetes mellitus without complications (principal); D50.8 Other iron deficiency anemias; E55.9 Vitamin D deficiency, unspecified
CPT/HCPCS: 36415; 80053; 80061; 82306; 82607; 83036; 83540; 83550; 85025

== ENCOUNTER → 2020-01-01 | Outpatient (CLI) | payer MEDICARE ==
[2020-01-01 08:30] LABS: ALBUMIN 4.5 g/dL (3.5-5.0); ALKALINE PHOSPHATASE 81 U/L (38-126); ANION GAP 8 (5-19); ASPARTATE AMINO TRANSFERASE 21 U/L (14-36); BILIRUBIN,TOTAL 0.6 mg/dL (0.2-1.3); BLOOD UREA NITROGEN 17 mg/dL (7-20); CALCIUM 9.4 mg/dL (8.4-10.2); CARBON DIOXIDE 35 mmol/L (22-30); CHLORIDE 95 mmol/L (98-107); CHOLESTEROL 229.39 mg/dL (0-200); GLUCOSE 277 mg/dL (75-110); IRON(TIBC) 115.3 ug/dL (37-170); POTASSIUM 4.1 mmol/L (3.6-5.0); TOTAL PROTEIN 7.7 g/dL (6.3-8.2); TRIGLYCERIDES 135 mg/dL (<150)
[2020-01-01 08:41] LABS: DIRECT LDL 187 mg/dL (<100)
[2020-01-02 11:37] LABS: MICROALBUMIN URINE <3.0 ug/mL (Not Estab.)
== END ==
LOC: OD 07:27
PROVIDERS: ATTEND Family Medicine
DX: E78.5 Hyperlipidemia, unspecified (principal); D50.9 Iron deficiency anemia, unspecified; E11.65 Type 2 diabetes mellitus with hyperglycemia; Z98.84 Bariatric surgery status
CPT/HCPCS: 36415; 80053; 80061; 82043; 82550; 82570; 82607; 82728; 83036; 83540; 83550; 83735

== ENCOUNTER → 2020-01-10 | Outpatient (CLI) | payer MEDICARE ==
[2020-01-10 12:24] LABS: ABSOLUTE BASOPHILS # (AUTO) 0.1 10^3/uL (0.0-0.2); ABSOLUTE EOSINOPHILS # (AUTO) 0.2 10^3/uL (0.0-0.6); ABSOLUTE MONOCYTES (AUTO) 0.6 10^3/uL (0.1-1.4); ABSOLUTE NEUT (AUTO) 7.5 10^3/uL (1.7-8.2); BASOPHILS % (AUTO) 1.2 % (0-2); EOSINOPHILS % (AUTO) 1.5 % (0-6); HEMATOCRIT 44.5 % (36.0-47.0); HEMOGLOBIN 15.4 g/dL (12.0-15.5); LYMPHOCYTES % (AUTO) 19.1 % (13-45); MEAN CORPUSCULAR HEMOGLOBIN 31.6 pg (27.0-33.4); MEAN CORPUSCULAR HGB CONC 34.7 g/dL (32.0-36.0); MEAN CORPUSCULAR VOLUME 91 fl (80-97); MONOCYTES % (AUTO) 6.2 % (3-13); PLATELET COUNT 232 10^3/uL (150-450); RED BLOOD COUNT 4.88 10^6/uL (3.72-5.28); RED CELL DISTRIBUTION WIDTH 13.2 % (11.5-14.0); TOTAL CELLS COUNTED % (AUTO) 100 %; WHITE BLOOD COUNT 10.4 10^3/uL (4.0-10.5)
[2020-01-10 13:02] LABS: FREE T4 (FREE THYROXINE) 1.11 ng/dL (0.78-2.19)
[2020-01-10 13:16] LABS: THYROID STIMULATING HORMONE 0.61 uIU/mL (0.47-4.68)
== END ==
LOC: OD 11:50
PROVIDERS: ATTEND Family Medicine
DX: E03.9 Hypothyroidism, unspecified (principal); R55 Syncope and collapse
CPT/HCPCS: 36415; 84439; 84443; 85025

== ENCOUNTER → 2020-04-01 | Outpatient (CLI) | payer MEDICARE ==
[2020-04-01 11:57] LABS: ABSOLUTE BASOPHILS # (AUTO) 0.1 10^3/uL (0.0-0.2); ABSOLUTE EOSINOPHILS # (AUTO) 0.2 10^3/uL (0.0-0.6); ABSOLUTE LYMPHOCYTES (AUTO) 3.4 10^3/uL (0.5-4.7); ABSOLUTE MONOCYTES (AUTO) 0.6 10^3/uL (0.1-1.4); ABSOLUTE NEUT (AUTO) 5.7 10^3/uL (1.7-8.2); BASOPHILS % (AUTO) 1.3 % (0-2); EOSINOPHILS % (AUTO) 2.4 % (0-6); HEMATOCRIT 41.5 % (36.0-47.0); HEMOGLOBIN 14.5 g/dL (12.0-15.5); LYMPHOCYTES % (AUTO) 33.5 % (13-45); MEAN CORPUSCULAR HEMOGLOBIN 31.6 pg (27.0-33.4); MEAN CORPUSCULAR VOLUME 90 fl (80-97); MONOCYTES % (AUTO) 5.9 % (3-13); PLATELET COUNT 280 10^3/uL (150-450); RED CELL DISTRIBUTION WIDTH 13.9 % (11.5-14.0); SEGMENTED NEUTROPHILS % (AUTO) 56.9 % (42-78); TOTAL CELLS COUNTED % (AUTO) 100 %; WHITE BLOOD COUNT 10.1 10^3/uL (4.0-10.5)
[2020-04-01 12:15] LABS: ALBUMIN 4.3 g/dL (3.5-5.0); ALKALINE PHOSPHATASE 73 U/L (38-126); ANION GAP 5 (5-19); ASPARTATE AMINO TRANSFERASE 23 U/L (14-36); BILIRUBIN,TOTAL 0.5 mg/dL (0.2-1.3); BLOOD UREA NITROGEN 15 mg/dL (7-20); CALCIUM 9.2 mg/dL (8.4-10.2); CARBON DIOXIDE 27 mmol/L (22-30); CHLORIDE 99 mmol/L (98-107); GLUCOSE 317 mg/dL (75-110); IRON(TIBC) 105.8 ug/dL (37-170); POTASSIUM 4.8 mmol/L (3.6-5.0); TOTAL PROTEIN 7.1 g/dL (6.3-8.2)
[2020-04-02 12:36] LABS: CREATININE URINE 64.7 mg/dL (Not Estab.); MICROALBUMIN URINE 5.6 ug/mL (Not Estab.)
== END ==
LOC: OD 11:10
PROVIDERS: ATTEND Family Medicine
DX: E11.65 Type 2 diabetes mellitus with hyperglycemia (principal); D50.9 Iron deficiency anemia, unspecified; Z98.84 Bariatric surgery status
CPT/HCPCS: 36415; 80053; 82043; 82306; 82570; 82728; 83036; 83540; 83550; 85025

== ENCOUNTER → 2020-06-18 | Outpatient (CLI) | payer MEDICARE ==
--- NOTE | 2020-06-18 16:28 | RADIOLOGY REPORT (SQ) ---
EXAM DESCRIPTION: UGI W/ DOUBLE CONTRAST; SMALL BOWEL POST UGI IMAGES COMPLETED DATE/TIME: 06/18/2020 10:39 am; 06/18/2020 1:10 pm REASON FOR STUDY: D64.9 ANEMIA, UNSPECIFIED, K27.9 PEPTIC ULC, SITE UNSP, UNSP AC OR CHR, D64.9 ANEMIA, UNSPECIFIED COMPARISON: None. TECHNIQUE: Under fluoroscopic guidance, patient ingested effervescent granules followed by thick and thin barium. Fluoroscopic spot images and routine radiographic images acquired and stored on PACS. 12 MM BARIUM TABLET GIVEN: Barium tablet passed through the esophagus and into the stomach without de lay. LIMITATIONS: None. FLUOROSCOPY TIME: FLUORO TIME: 2.6 minutes 16 images saved to PACS. FINDINGS: NEUROMUSCULAR COORDINATION OF SWALLOW: Normal. No aspiration. ESOPHAGEAL MOTILITY: Normal peristalsis. No esophageal spasm. ESOPHAGEAL MUCOSA: Normal mucosa without masses or ulceration. Irregularity of the fundus due to bradly gical changes. GASTRO-ESOPHAGEAL JUNCTION: No hiatal hernia or reflux. STOMACH: Normal without masses or ulcerations. Surgical changes are seen consistent with patient's s tated history of gastric bypass, revision repair and reversal repair. GASTRIC OUTLET: No delay in emptying. Normal pylorus. DUODENAL BULB: Normal distention. No spasm or ulceration. DUODENUM: Mucosa normal. No extrinsic masses or malrotation. SMALL BOWEL: Mucosa normal. No extrinsic masses seen throughout the small bowel. Normal appearing t erminal ileum. Limited views of cecum unremarkable. NON-GI TRACT STRUCTURES: No significant finding. OTHER: Small bowel transit time 3.5 hours. IMPRESSION: SURGICAL CHANGES CONSISTENT WITH PRIOR GASTRIC BYPASS AND MULTIPLE REVISIONS. OTHERWISE UNREMARKABLE STUDY. COMMENT: NONE Quality ID [id number]: Final reports for procedures using fluoroscopy that document radiation exposure anders juan, or exposure time and number of fluorographic images (if radiation exposure indices are not avail able) TECHNICAL DOCUMENTATION: JOB ID: [id number] 2010 [employer]- All Rights Reserved Reading location - IP/workstation name: [email or web address]
== END ==
LOC: RAD 09:03
PROVIDERS: ATTEND Surgery
DX: D64.9 Anemia, unspecified (principal); K27.9 Peptic ulcer, site unspecified, unspecified as acute or chronic, without hemorrhage or perforation; K86.1 Other chronic pancreatitis
CPT/HCPCS: 74246; 74248

== ENCOUNTER → 2020-07-06 | Outpatient (CLI) | payer MEDICARE ==
--- NOTE | 2020-07-06 18:01 | RADIOLOGY REPORT (SQ) ---
EXAM DESCRIPTION: MRI HEAD COMBO IMAGES COMPLETED DATE/TIME: 07/06/2020 9:33 am REASON FOR STUDY: (R27.0)ATAXIA, UNSPECIFIED R27.0 ATAXIA, UNSPECIFIED COMPARISON: None. TECHNIQUE: Multiplanar imaging includes noncontrasted T1, T2, FLAIR, diffusion with ADC map and post gadolinium contrast T1 sequences. Images stored on PACS. CONTRAST TYPE AND DOSE: 15 mL Prohance. RENAL FUNCTION: Not indicated. ACR Type II contrast agent associated with few, if any, unconfounded cases of NSF LIMITATIONS: None. FINDINGS: ANATOMY: No anomalies. Normal vascular flow voids. Pituitary fossa normal. CSF SPACES: Normal in size and contour. No hemorrhage. CEREBRUM: Sulci and gyri normal in size and contour. Normal white matter signal on FLAIR imaging. No evidence of hemorrhage, mass, or extraaxial fluid collection. No abnormal enhancement post contrast. POSTERIOR FOSSA: No signal alteration. No hemorrhage. No edema, masses, or mass effect. Internal medardo tory canals, cerebellopontine angles, mastoids normal. No enhancing lesions. No abnormal enhancement post contrast. DIFFUSION IMAGING: Negative for acute or subacute infarction. ORBITS: No masses. Globes normal. PARANASAL SINUSES: No fluid levels. Mucosa normal. OTHER: No other significant finding. IMPRESSION: NORMAL MRI OF THE BRAIN WITHOUT AND WITH INTRAVENOUS GADOLINIUM CONTRAST. EVIDENCE OF ACUTE STROKE: NO. TECHNICAL DOCUMENTATION: JOB ID: [id number] 2010 [employer]- All Rights Reserved Reading location - IP/workstation name: [email or web address]
== END ==
LOC: RAD 08:07
PROVIDERS: ATTEND Family Medicine
DX: R27.0 Ataxia, unspecified (principal)
CPT/HCPCS: 82565; 70553; A9576

== ENCOUNTER → 2020-07-10 | Outpatient (CLI) | payer MEDICARE ==
[2020-07-10 10:43] LABS: ALBUMIN 4.3 g/dL (3.5-5.0); ALKALINE PHOSPHATASE 79 U/L (38-126); ANION GAP 9 (5-19); ASPARTATE AMINO TRANSFERASE 26 U/L (14-36); BILIRUBIN,TOTAL 0.5 mg/dL (0.2-1.3); BLOOD UREA NITROGEN 9 mg/dL (7-20); CALCIUM 9.3 mg/dL (8.4-10.2); CARBON DIOXIDE 26 mmol/L (22-30); CHLORIDE 103 mmol/L (98-107); GLUCOSE 238 mg/dL (75-110); POTASSIUM 4.6 mmol/L (3.6-5.0); TOTAL PROTEIN 7.2 g/dL (6.3-8.2)
[2020-07-10 13:21] LABS: URINE AMPHETAMINES SCREEN NEGATIVE; URINE BARBITURATES SCREEN NEGATIVE; URINE COCAINE SCREEN NEGATIVE; URINE MARIJUANA (THC) SCREEN NEGATIVE; URINE METHADONE SCREEN NEGATIVE; URINE PHENCYCLIDINE SCREEN NEGATIVE
[2020-07-10 14:25] LABS: URINE BENZODIAZEPINES SCREEN UNCONFIRMED POSITIVE
[2020-07-11 10:37] LABS: MICROALBUMIN URINE <3.0 ug/mL (Not Estab.)
== END ==
LOC: OD 08:26
PROVIDERS: ATTEND Family Medicine
DX: E11.40 Type 2 diabetes mellitus with diabetic neuropathy, unspecified (principal); Z79.891 Long term (current) use of opiate analgesic
CPT/HCPCS: 36415; 80053; 80307; 82043; 82570; 83036

== ENCOUNTER 2020-07-15 09:58 | Day surgery (SDC) | payer MEDICARE ==
[~2020-07-15 09:58] MED LIST: LACTATED RINGERS 1000 ML IV PRN; LIDOCAINE 0.5% INJ-PF (5 MG/ML) 50 ML SDV SUBCUT PRN; PROPOFOL INJ 200 MG/20 ML VIAL IV ONE
[2020-07-15] MEDS ORDERED: DIPHENHYDRAMINE HCL 50 MG/ML VIAL IV PRN (11:30)
[2020-07-15] MEDS ORDERED: FENTANYL CITRATE INJ/PF 100 MCG/2 ML AMPUL IV PRN ×3 (11:30)
[2020-07-15] MEDS ORDERED: MEPERIDINE HCL/PF INJ 25 MG/1 ML DISP.SYRIN IV PRN (11:30)
[2020-07-15] MEDS ORDERED: ONDANSETRON HCL INJ/PF 4 MG/2 ML SDV IV PRN (11:30)
[2020-07-15] MEDS ORDERED: PROMETHAZINE HCL INJ 25 MG/1 ML VIAL IV PRN ×2 (11:30)
--- NOTE | 2020-07-15 11:33 | Operative Report ---
Nonrecallable Operative Report DATE OF SURGERY: 07/15/20 PREOPERATIVE DIAGNOSIS: History of gastric bypass status post gastrogastrostomy for revision POSTOPERATIVE DIAGNOSIS: History of gastric bypass status post reversal gastric bypass OPERATION: Esophagogastroduodenoscopy SURGEON: ZACHARIAH ABARCA ANESTHESIA: Moderate Sedation TISSUE REMOVED OR ALTERED: None COMPLICATIONS: None ESTIMATED BLOOD LOSS: 0 INTRAOPERATIVE FINDINGS: See note PROCEDURE: Patient was brought to the operating when awake and alert in stable condition placed on the operating table in a left lateral decubitus position and given IV sedation After appropriate timeout site verification the procedure commenced. The Olympus gastroscope was passed into the posterior pharynx and easily traversed the upper esophageal sphincters into the esophagus as we traversed down the esophagus to the lower esophageal sphincter we noted no evidence of abnormal mucosal or abnormality of the esophagus. As we entered the stomach we immediately noted a previous anastomosis that was in fact the reversal of her gastric bypass the gastrogastrostomy. There was a small blind pouch just to the edge of the anastomosis that went anterior ended abruptly in a similar was from the previous surgery. The gastro-gastric anastomosis appeared to be somewhat friable at the anastomosis but it was intact there was no significant ulceration but it was easily bled when touched. We traversed that and entered the major body the stomach examined the antrum the pylorus the pylorus was then intubated and we entered the duodenum. The duodenum was examined to the second portion of it and it appeared to be normal we slowly withdrew the scope examined the duodenal bulb there is no ulceration or evidence of bleeding we retroflexed the scope we identified the GE junction and the previous gastro-gastric anastomosis which also appeared to be somewhat friable again from below but no evidence of any overt ulceration. The scope was then slowly withdrawn. Impression status post gastro-gastric anastomosis for reversal of her gastric bypass procedure. Friability of the gastro-gastric anastomosis. Recommendations we will continue the patient on proton pump inhibitors and Carafate. Patient will follow-up with me as needed. She would also follow-up with her primary physician.
--- NOTE | 2020-07-15 11:35 | Discharge Summary ---
Discharge Summary (SDC) - Discharge Final Diagnosis: History of gastric bypass Date of Surgery: 07/15/20 Discharge Date: 07/15/20 Condition: Good Referrals: HEATH STARK MD [Primary Care Provider] - Discharge Diet: As Tolerated Discharge Activity: Activity As Tolerated Report the Following to Your Physician Immediately: Shortness of Breath, I ncrease in Pain
[2020-07-15 13:10] VITALS: BP 128/78
== END 2020-07-15 12:40 | disposition home or self-care (01) ==
LOC: OROUT 09:58
PROVIDERS: ATTEND Surgery
DX: Z98.84 Bariatric surgery status (principal); D64.9 Anemia, unspecified; K86.1 Other chronic pancreatitis; F32.9 Major depressive disorder, single episode, unspecified; Z03.818 Encounter for observation for suspected exposure to other biological agents ruled out; E11.40 Type 2 diabetes mellitus with diabetic neuropathy, unspecified; Z87.11 Personal history of peptic ulcer disease; Z88.8 Allergy status to other drugs, medicaments and biological substances; Z79.4 Long term (current) use of insulin; Z79.899 Other long term (current) drug therapy; Z79.84 Long term (current) use of oral hypoglycemic drugs
CPT/HCPCS: 43235; 82962; 00731; U0003; J2704; C9803; 731; 87635

== ENCOUNTER → 2020-09-28 | Outpatient (CLI) | payer MEDICARE ==
[2020-09-28 10:27] LABS: ABSOLUTE BASOPHILS # (AUTO) 0.1 10^3/uL (0.0-0.2); ABSOLUTE EOSINOPHILS # (AUTO) 0.3 10^3/uL (0.0-0.6); ABSOLUTE LYMPHOCYTES (AUTO) 2.6 10^3/uL (0.5-4.7); ABSOLUTE NEUT (AUTO) 8.3 10^3/uL (1.7-8.2); BASOPHILS % (AUTO) 0.9 % (0-2); EOSINOPHILS % (AUTO) 2.1 % (0-6); HEMATOCRIT 44.1 % (36.0-47.0); HEMOGLOBIN 15.4 g/dL (12.0-15.5); LYMPHOCYTES % (AUTO) 21.3 % (13-45); MEAN CORPUSCULAR HGB CONC 34.9 g/dL (32.0-36.0); MEAN CORPUSCULAR VOLUME 92 fl (80-97); MONOCYTES % (AUTO) 7.9 % (3-13); RED BLOOD COUNT 4.81 10^6/uL (3.72-5.28); RED CELL DISTRIBUTION WIDTH 12.9 % (11.5-14.0); SEGMENTED NEUTROPHILS % (AUTO) 67.8 % (42-78); TOTAL CELLS COUNTED % (AUTO) 100 %; WHITE BLOOD COUNT 12.2 10^3/uL (4.0-10.5)
[2020-09-28 10:32] LABS: ALBUMIN 4.3 g/dL (3.5-5.0); ALKALINE PHOSPHATASE 95 U/L (38-126); ANION GAP 11 (5-19); ASPARTATE AMINO TRANSFERASE 23 U/L (14-36); BILIRUBIN,DIRECT 0.3 mg/dL (0.0-0.4); BILIRUBIN,TOTAL 0.7 mg/dL (0.2-1.3); BLOOD UREA NITROGEN 15 mg/dL (7-20); CARBON DIOXIDE 24 mmol/L (22-30); CHLORIDE 101 mmol/L (98-107); CHOLESTEROL 199.98 mg/dL (0-200); GLUCOSE 244 mg/dL (75-110); IRON(TIBC) 129.3 ug/dL (37-170); POTASSIUM 4.6 mmol/L (3.6-5.0); TOTAL PROTEIN 7.4 g/dL (6.3-8.2); TRIGLYCERIDES 200 mg/dL (<150)
[2020-09-28 10:43] LABS: DIRECT LDL 156 mg/dL (<100)
[2020-09-28 10:49] LABS: FREE T4 (FREE THYROXINE) 1.36 ng/dL (0.78-2.19)
[2020-09-28 10:57] LABS: PLATELET COUNT 291 10^3/uL (150-450)
[2020-09-28 11:03] LABS: THYROID STIMULATING HORMONE 1.15 uIU/mL (0.47-4.68)
[2020-09-30 04:36] LABS: CREATININE URINE 123.7 mg/dL (Not Estab.); MICROALBUMIN URINE 12.9 ug/mL (Not Estab.)
== END ==
LOC: OD 09:05
PROVIDERS: ATTEND Family Medicine
DX: E78.5 Hyperlipidemia, unspecified (principal); E03.9 Hypothyroidism, unspecified; D50.9 Iron deficiency anemia, unspecified; E55.9 Vitamin D deficiency, unspecified; E11.65 Type 2 diabetes mellitus with hyperglycemia; Z79.899 Other long term (current) drug therapy
CPT/HCPCS: 36415; 80053; 80061; 82043; 82306; 82570; 82728; 83036; 83540; 83550; 84439; 84443; 85025